=== PATIENT | male | born 1985 | race Asian ===

== ENCOUNTER 2017-05-29 15:06 | Emergency (ER) | payer BC ==
[~2017-05-29] VITALS: Ht 167.6 cm; Wt 50.9 kg
[2017-05-29 15:12] VITALS: Ht 167.6 cm; Wt 50.9 kg
[2017-05-29] MEDS ORDERED: ACETAMINOPHEN 500 MG TAB PO STA (15:37)
--- NOTE | 2017-05-29 15:50 | EMERGENCY ROOM VISIT NOTE ---
History First contact with patient: 15:14 Chief Complaint: FEVER Stated Complaint: FEVER,SOB History of Present Illness The patient is a 31 year old male who presents to the Emergency Room with complaints of fever of 37.7 and chills, shortness of breath, cough, pleuritic back pain, dizziness, and nausea. These symptoms just started at noon today. They were shopping yesterday and he wonders if he had too much close contact with other people. Currently feels chills, weak, and dyspneic. The cough is dry and occasional. Back pain is worsened with deep breathing and he is unsure if this is related to coughing or playing bad[place] yesterday. He denies sinus congestion, sore throatNo diarrhea He had heartburn and nausea for the past few days. Reports he had stomach flu 3 years ago Has not gotten flu shot this year. He reports no chronic medical conditions aside from IBS. Review of Systems Constitutional: + fever, + chills, + weight loss (had been losing weight over the summer, had EGD and was told he had IBS; no weight loss since then ), + weakness, + fatigue, No sweats, No problem reported Eyes: No worsening of vision, No eye pain, No redness, No discharge, No diplopia, No problem reported ENT: No hearing loss, No unusual epistaxis, No nasal symptoms, No sore throat, No tinnitus, No dental problems, No trouble swallowing, No problem reported Respiratory: + cough, + shortness of breath, + dyspnea on exertion, + dyspnea at rest, No sputum, No wheezing, No hemoptysis, No problem reported Cardiovascular: No chest pain, No orthopnea, No PND, No edema, No claudication, No palpitations, No problem reported Abdomen: + nausea, No pain, No vomiting, No diarrhea, No constipation, No GI bleeding, No problem reported Musculoskeletal: No joint pain, No muscle pain, No swelling, No calf pain, No problem reported Genitourinary - Male: No hematuria, No dysuria, No urinary frequency, No urinary urgency, No urinary hesitancy, No urinary retention, No urinary incontinence, No penile discharge, No lesions, No impotence, No problem reported Neurologic: No memory loss, No paralysis, No weakness, No numbness/tingling , No vertigo, No balance problems, No problem reported Integumentary: No rash, No itch, No new/changing skin lesions, No color change, No bleeding, No problem reported Past Medical/Surgical History Medical Problems: (1) IBS (irritable bowel syndrome) Social History Smoking Status: Never Smoker Current/Historical Medications No Active Prescriptions or Reported Meds Physical Exam Vital Signs Date Time Temp Pulse Resp B/P (MAP) Pulse Ox O2 Delivery O2 Flow Rate FiO2 05/29/17 17:38 84 20 101/64 97 05/29/17 17:38 37.7 84 20 101/64 97 Room Air 05/29/17 15:12 37.7 98 18 100/69 100 Room Air Physical Exam General Appearance: WD/WN, no apparent distress Head: normocephalic, atraumatic Eyes: EOMI ENT: normal ENT inspection, hearing grossly normal, TMs normal Neck: supple, thyroid normal, no JVD Respiratory/Chest: chest non-tender, lungs clear, normal breath sounds, no respiratory distress, no accessory muscle use Cardiovascular: regular rate, rhythm, no edema, no gallop, no JVD, no murmur , normal peripheral pulses Abdomen / GI: normal bowel sounds, non tender, soft, no organomegaly Back: normal inspection, no CVA tenderness Extremities: normal inspection, no calf tenderness, normal capillary refill , no pedal edema Neurologic/Psych: envelope adjuster II-XII nml as tested, no motor/sensory deficits, alert , normal mood/affect, normal reflexes, oriented x 3 Medical Decision & Procedures ER Provider Diagnostic Interpretation: CHEST 2 VIEWS ROUTINE CLINICAL HISTORY: Fever. Dyspnea. COMPARISON STUDY: No previous studies for comparison. FINDINGS: Lung volumes are normal. No pneumothorax or pleural effusion is present. There is no consolidation. Cardiomediastinal silhouette is normal. Pulmonary vascularity is normal. IMPRESSION: No acute cardiopulmonary findings. Laboratory Results Test 05/29/17 15:55 Influenza Type A Antigen Neg for Influ A (NEG) Influenza Type B Antigen Neg for Influ B (NEG) Medications Administered Medications (Trade) Dose Ordered Sig/Wing Route Start Time Stop Time Status Last Admin Dose Admin Acetaminophen (Tylenol Tab) 1,000 mg NOW STAT PO 05/29/17 15:37 05/29/17 15:39 DC 05/29/17 15:51 1,000 MG Albuterol (Ventolin Hfa Inhaler) 2 puffs Q4HWA INH 05/29/17 20:00 05/29/17 20:00 DC 05/29/17 17:30 2 PUFFS ED Course 1515: first contact with patient; full h&p obtained. 1535: discussed case with Dr. Roe, who obtained his own h&p. Ordered flu swab, cxr, and tylenol 1000mg 1630: Reassessed patient, he is feeling moderately better. Will give patient albuterol inhaler to take home; 2 puffs q4h prn 1700: Discussed xray and flu swab findings (both normal). Patient amenable to discharge. Discussed scheduled tylenol and motrin dosing, increasing rest and fluids, and use of inhaler at home. Should present back to ED if symptoms worsen. Follow up with PCP if symptoms do not improve by next week. Medical Decision Prior records/ancillary studies reviewed. Triage Nursing notes reviewed. Additional history obtained from patient and . The patient's history was concerning for fever. Differential diagnosis: Etiologies such as viral syndrome, otitis, pharyngitis, pneumonia, influenza, meningitis, urinary tract infection, sepsis, bacteremia, as well as others were entertained. Physical examination: As above ER treatment provided: Tylenol 1000mg On reassessment the patient felt better. 2 puffs albuterol inhaler Diagnostics interpreted by me: Imaging studies:CHEST 2 VIEWS ROUTINE CLINICAL HISTORY: Fever. Dyspnea. COMPARISON STUDY: No previous studies for comparison. FINDINGS: Lung volumes are normal. No pneumothorax or pleural effusion is present. There is no consolidation. Cardiomediastinal silhouette is normal. Pulmonary vascularity is normal. IMPRESSION: No acute cardiopulmonary findings. This appears to be consistent with viral illness. By the evaluation outlined above emergent etiologies such as otitis, pharyngitis, pneumonia, meningitis, urinary tract infection, sepsis, bacteremia, as well as others were deemed relatively unlikely. The patient and family were informed about the findings as listed above. All questions were answered and they were pleased with the treatment. Return instructions were outlined and the patient was discharged in stable condition. Outpatient prescription management: Albuterol inhaler 2 puffs q4h prn Referral: The patient was referred back to their primary care physician for follow-up in 2 to 3 days for a recheck of the current condition. Blood Pressure Screening Patient's blood pressure: Normal blood pressure Impression Primary Impression: Influenza-like symptoms Departure Information Dispostion Home / Self-Care Condition GOOD Prescriptions No Active Prescriptions or Reported Meds Patient Instructions ED Viral Syndrome, My [facility] Additional Instructions FEVER: Tylenol/acetaminophen and Motrin/ibuprofen may be safely taken together or alternated for fever/pain control. They work differently and won't interact with each other. An example using 6 hour dosing would be Tylenol at Noon, Motrin at 3 PM, then Tylenol at 6 PM, and then Motrin at 9 PM. Read all the package inserts or medication information paperwork provided. If you have any questions or concerns call your primary provider, pharmacist or the ER for assistance. Encourage fluid intake. Rest is important, but light activity is o.k. Take 2 puffs of the inhaler every four hours as needed. Return to the ER for lethargy, vomiting, difficulty breathing, abdominal pain, worsening of their condition, or for any concerns. Resident Tracking Resident Involvement: Resident Care Provided Care Provided: Adult ED
--- NOTE | 2017-05-29 16:54 | DIAGNOSTIC IMAGING REPORT ---
CHEST 2 VIEWS ROUTINE CLINICAL HISTORY: Fever. Dyspnea. COMPARISON STUDY: No previous studies for comparison. FINDINGS: Lung volumes are normal. No pneumothorax or pleural effusion is present. There is no consolidation. Cardiomediastinal silhouette is normal. Pulmonary vascularity is normal. IMPRESSION: No acute cardiopulmonary findings. Electronically signed by: Librado Benitez M.D. 05/29/2017 4:52 PM Dictated Date/Time: 05/29/2017 4:51 PM
[2017-05-29] MEDS ORDERED: ALBUTEROL HFA 8 GM INHALER INH ONE (17:29)
[2017-05-29 17:38] VITALS: BP 101/64; PULSE 84; TEMP 37.7; O2SAT 97
[2017-05-29] MEDS ORDERED: ALBUTEROL HFA 8 GM INHALER INH SCH (20:00)
--- NOTE | 2017-05-29 21:24 | EMERGENCY ROOM VISIT NOTE ---
History Report prepared by Paco: Whit Palomino Under the Supervision of: Dr. Humberto Roe M.D. First contact with patient: 15:15 Chief Complaint: FEVER Stated Complaint: FEVER,SOB History of Present Illness The patient is a 31 year old male who presents to the Emergency Room with complaints of a worsening fever starting five hours ago. The patient states that he had a fever at home of a 37.8 degrees Celsius at home. The patient complains of a dry cough, chills, shortness of breath, back pain, dizziness, nausea, weakness, and heart burn. He states that his back pain is worse with deep breathing. He notes he was out shopping yesterday and thinks he picked something up. He reports a history of IBS. The patient denies getting his flu shot this year. He reports that earlier in the year he had a lot of weight loss that he followed with GI for, but denies anything significant being found. Pt denies LOC, headache, diaphoresis, visual changes, neck pain, chest pain, vomiting, abdominal pain, melena, hematochezia, urinary symptoms, numbness, lymphadenopathy, rash, or other complaints. Source of History: patient Onset: five hours ago Position: other (global) Quality: other (global) Timing: worsening Modifying Factors (Worsening): breathing (deep) Associated Symptoms: + chills, + cough (dry), + SOB, + nausea, + back pain, + weakness Note: The patient complains of dizziness and heart burn. Review of Systems See HPI for pertinent positives and negatives. A total of ten systems were reviewed and were otherwise negative. Past Medical & Surgical Medical Problems: (1) IBS (irritable bowel syndrome) Family History No pertinent family history Social History Smoking Status: Never Smoker Marital Status: Housing Status: lives with significant other Current/Historical Medications No Active Prescriptions or Reported Meds Allergies Coded Allergies: Penicillins (Verified Allergy, Mild, Skin test, 05/29/17) POLLEN (Unverified Allergy, Unknown, seasonal allergies, 05/29/17) Physical Exam Vital Signs Date Time Temp Pulse Resp B/P (MAP) Pulse Ox O2 Delivery O2 Flow Rate FiO2 05/29/17 17:38 84 20 101/64 97 05/29/17 17:38 37.7 84 20 101/64 97 Room Air 11/25/17 15:12 37.7 98 18 100/69 100 Room Air Physical Exam GENERAL: Awake, alert, non-ill appearing, no distress HEAD: Normocephalic, atraumatic. No edema. EYES: Normal conjunctiva. Sclera non-icteric. EARS: Right TM normal. Left TM normal. NOSE: Mild congestion. OROPHARYNX: Lips, tongue, and mucosa unremarkable. No erythema or exudate. NECK: Supple. No nuchal rigidity. FROM. No adenopathy. Negative jolt accentuation test. RESPIRATORY: CTA bilaterally. No wheezes rales or rhonchi. CARDIAC: Borderline tachycardic rate, normal rhythm. ABDOMEN: Soft, non distended. No tenderness to palpation. NEURO: Normal sensorium. SKIN: No rash or jaundice noted Medical Decision & Procedures ER Provider Diagnostic Interpretation: Radiology results as stated below per my review and radiologist interpretation: CHEST 2 VIEWS ROUTINE CLINICAL HISTORY: Fever. Dyspnea. COMPARISON STUDY: No previous studies for comparison. FINDINGS: Lung volumes are normal. No pneumothorax or pleural effusion is present. There is no consolidation. Cardiomediastinal silhouette is normal. Pulmonary vascularity is normal. IMPRESSION: No acute cardiopulmonary findings. Electronically signed by: Librado Benitez M.D. 05/29/2017 4:52 PM Dictated Date/Time: 05/29/2017 4:51 PM Laboratory Results Test 05/29/17 15:55 Influenza Type A Antigen Neg for Influ A (NEG) Influenza Type B Antigen Neg for Influ B (NEG) Laboratory results reviewed by me Medications Administered Medications (Trade) Dose Ordered Sig/Wing Route Start Time Stop Time Status Last Admin Dose Admin Acetaminophen (Tylenol Tab) 1,000 mg NOW STAT PO 05/29/17 15:37 05/29/17 15:39 DC 05/29/17 15:51 1,000 MG Albuterol (Ventolin Hfa Inhaler) 2 puffs Q4HWA INH 05/29/17 20:00 05/29/17 20:00 DC 05/29/17 17:30 2 PUFFS ED Course 1536: The patient was evaluated in room B8. A complete history and physical exam was performed. 1537: Ordered Tylenol Tab 1000 mg PO. 1708: I reevaluated the patient. Discussed results and discharge instructions: He verbalized understanding and agreement. The patient is ready for discharge. 1999: Ordered Albuterol 2 puffs INH. Medical Decision Triage Nursing notes reviewed. The patient's presentation and history were concerning for fever and flu like symptoms. Etiologies such as viral syndrome, otitis, pharyngitis, pneumonia, urinary tract infection, sepsis, bacteremia, meningitis, as well as others were entertained. The patient was evaluated. He has flulike symptoms. He had a flu swab performed. He was given Tylenol. The patient was sent to x-ray. Chest x-ray was negative. The patient had a negative flu swab. Albuterol MDI was given. Conservative management was discussed. Close follow-up as an outpatient was recommended. The patient was seen and examined with Dr. Jayne Paez, resident physician. We discussed the case and treatments ordered, reviewed the results, and determine the disposition. Please refer to the resident's note for additional details. I have been directly involved with the management and disposition as well as independently evaluated the patient as documented in this note. By the evaluation outlined above other emergent etiologies such as those listed in the differential, as well as others, were deemed relatively unlikely. The patient was educated about the findings as listed above. All questions were answered and the patient was pleased with the treatment. Return instructions were outlined and the patient was discharged in stable condition. The patient was referred to his primary for follow-up for a recheck of the current condition. Medication Reconcilliation Current Medication List: was personally reviewed by me Blood Pressure Screening Patient's blood pressure: Normal blood pressure Blood pressure disposition: Did not require urgent referral Impression Primary Impression: Fever Additional Impression: Influenza-like symptoms Scribe Attestation The scribe's documentation has been prepared under my direction and personally reviewed by me in its entirety. I confirm that the note above accurately reflects all work, treatment, procedures, and medical decision making performed by me. Departure Information Dispostion Home / Self-Care Prescriptions No Active Prescriptions or Reported Meds Forms HOME CARE DOCUMENTATION FORM, IMPORTANT VISIT INFORMATION Patient Instructions My [facility] Additional Instructions FEVER: Tylenol/acetaminophen and Motrin/ibuprofen may be safely taken together or alternated for fever/pain control. They work differently and won't interact with each other. An example using 6 hour dosing would be Tylenol at Noon, Motrin at 3 PM, then Tylenol at 6 PM, and then Motrin at 9 PM. Read all the package inserts or medication information paperwork provided. If you have any questions or concerns call your primary provider, pharmacist or the ER for assistance. Encourage fluid intake. Rest is important, but light activity is o.k. Return to the ER for lethargy, vomiting, difficulty breathing, abdominal pain, worsening of their condition, or for any concerns. Problem Qualifiers
== END 2017-05-29 17:40 | disposition home or self-care (01) ==
LOC: C.EDB 15:07
DX: R50.9 Fever, unspecified (principal); R06.02 Shortness of breath; R05 Cough; R42 Dizziness and giddiness; R11.0 Nausea; R53.1 Weakness; K21.9 Gastro-esophageal reflux disease without esophagitis; K58.9 Irritable bowel syndrome, unspecified